=== PATIENT | male | born 1975 | race Caucasian/White ===

== ENCOUNTER 2016-07-23 20:27 | Emergency (ER) | payer OTHER ==
[2016-07-23] MEDS ORDERED: CEPHALEXIN 500 MG CAPSULE ONE (21:24)
== END 2016-07-23 21:35 | disposition home or self-care (01) ==
LOC: ED 20:27
DX: L03.011 Cellulitis of right finger (principal)
CPT/HCPCS: 99283 ×2; A9270

== ENCOUNTER 2016-07-26 22:20 | Emergency (ER) | payer OTHER ==
[2016-07-27 01:30] LABS: ABSOLUTE NEUTROPHIL COUNT 4.4 K/mm3 (1.8-7.7); BASO % 0.4 % (0.2-1.0); EOS # 0.2 (0.0-0.5); EOS % 2.3 % (0.9-2.9); HEMATOCRIT 47.1 % (32.0-52.0); HEMOGLOBIN 15.8 gm/l (14.0-18.0); IMM NEUT% 0.3 % (0-1); LYMPH # 3.9 (1.0-4.8); MEAN CELL VOLUME 88.5 fl (80.0-94.0); MEAN CORPUSCULAR HEMOGLOBIN 29.7 pg (27.0-31.0); MEAN CORPUSCULAR HGB CONC 33.5 g/dl (33.0-37.0); MEAN PLATELET VOLUME 9.7 fl (7.4-10.4); MONO # 1.2 (0.0-0.8); MONO % 12.1 % (4-12); NEUT % 44.9 % (43-75); PLATELET COUNT 373 K/mm3 (130-400); RED CELL DISTRIBUTION WIDTH 12.8 % (11.5-14.5)
[2016-07-27 01:43] LABS: CALCIUM 9.7 mg/dL (8.6-10.3)
[2016-07-27 01:44] LABS: TROPONIN I < 0.01 ng/ml (0.0-0.06)
[2016-07-27 01:47] LABS: CKMB ISOENZYME 6.4 ng/ml (0.6-6.3)
--- NOTE | 2016-07-27 08:49 | RAD ---
07/27/2016 8:45 AM CHEST - 2 VIEWS History: Cellulitis. Comparison: 07/24/2014 Findings: Two views of the chest are obtained. The lungs are clear with out effusion or pneumothorax. The cardiomediastinal silhouette is unremarkable.. The osseous structures are intact.. IMPRESSION: No acute intrathoracic process.
== END 2016-07-27 02:09 | disposition home or self-care (01) ==
LOC: ED 22:20
DX: J06.9 Acute upper respiratory infection, unspecified (principal); R07.9 Chest pain, unspecified; R05 Cough